=== PATIENT | female | born 1985 | race Caucasian/White ===

== ENCOUNTER 2016-05-21 12:53 | Emergency (ER) | payer OTHER ==
--- NOTE | 2016-05-21 13:23 | ED.PDOC ---
History of Present Illness - General Chief Complaint: General Stated Complaint: mid back pain Time Seen by Provider: 05/21/16 13:08 Source: patient Exam Limitations: no limitations - History of Present Illness Initial Comments: PT C/O BACK PAIN X 2-3 DAYS. MID BACK. SHARP CONSTANT Severity: moderate Improving Factors: nothing Worsening Factors: eating - AFTER PT EATS DEVELOPS EPIGASTRIC PAIN WHICH RADIATES TO MID BACK. MID BACK PAIN HOWEVER PERSISTS Associated Symptoms: nausea/vomiting - TODAY ONLY 15 MINUTES AFTER EATING Allergies/Adverse Reactions: Allergies NO KNOWN ALLERGY Allergy (Verified 05/21/16 13:08) Home Medications: Ambulatory Orders Tramadol HCl [Ultram] 50 mg PO Q6HRS PRN #15 tab 08/20/14 Dicyclomine HCl [Bentyl] 20 mg PO Q6HR PRN #20 tab 05/21/16 Indomethacin 50 mg PO BID PRN #14 cap 05/21/16 Review of Systems - Review of Systems Constitutional: Denies: chills, fever EENTM: Denies: ear pain, throat pain Respiratory: Denies: cough, short of breath, wheezing Cardiology: Denies: chest pain, palpitations Gastrointestinal/Abdominal: States: abdominal pain, nausea, vomiting. Denies: diarrhea Genitourinary: Denies: dysuria, frequency, hematuria Musculoskeletal: States: back pain. Denies: neck pain Skin: States: no symptoms reported Neurological: States: no symptoms reported Endocrine: States: no symptoms reported Hematologic/Lymphatic: States: no symptoms reported Past Medical History (General) - Patient Medical History Hx Seizures: No Hx Stroke: No Hx Dementia: No Hx Asthma: No Hx of COPD: No Hx Cardiac Disorders: No Hx Congestive Heart Failure: No Hx Pacemaker: No Hx Hypertension: No Hx Thyroid Disease: No Hx Diabetes: No Hx Gastroesophageal Reflux: No Hx Renal Disease: No Hx Cancer: No Hx of HIV: No Hx Hepatitis C: No Hx MRSA: No Hx Other - free text: DEPRESSION Surgical History: appendectomy, other - C SECTION - Vaccination History Hx Tetanus, Diphtheria Vaccination: Yes Hx Influenza Vaccination: No Hx Pneumococcal Vaccination: No - Social History Hx Tobacco Use: No Hx Chewing Tobacco Use: No Hx Alcohol Use: No Hx Substance Use: No Hx Substance Use Treatment: No Hx Depression: No Hx Physical Abuse: No Hx Emotional Abuse: No Hx Suspected Abuse: No - Female History Hx Last Menstrual Period: 05/19/14 Patient : No - MISCARRIAGE PER DR. KEITH EARLY THIS MORNING. Expected Date of Delivery:: 03/31/15 Family Medical History - Family History Mother Family History: No Known Living Status: Still Living Hx Family Asthma: Yes Hx Cardiac Disease: Yes Hx Family Cancer: Yes - breast, cervical Physical Exam - Physical Exam General Appearance: Alert, Comfortable, No apparent distress, Obese Eye Exam: bilateral normal Ears, Nose, Throat: normal ENT inspection Neck: non-tender, full range of motion, supple, normal inspection Respiratory: lungs clear, normal breath sounds, other - O2 SATS 100% RA (NL) Cardiovascular/Chest: regular rate, rhythm, no murmur Gastrointestinal/Abdominal: normal bowel sounds, non tender, soft, no organomegaly Back Exam: normal inspection, no CVA tenderness Extremity: normal range of motion, non-tender, normal inspection Neurologic: normal mood/affect Skin Exam: normal color, warm/dry Lymphatic: no adenopathy Progress - Progress Progress: 05/21/16 15:33 STILL HAVING PAIN. PLEURITIC IN NATURE. FEEL IS MUSCULO-SKELETAL. - EKG/XRAY/CT EKG: Sinus - RATE 85, NL AXIS, NL INTERVALS, NON SPECIFIC T WAVE CHANGES, NAIP, NO OLD FOR COMPARISON Xray Comments: HAVE REVIEWED AND AGREE WITH RADIOLOGIST Departure - Departure Clinical Impression: Pleurisy, Musculoskeletal pain, Biliary colic Time of Disposition: 15:34 Disposition: Discharge to Home or Self Care Condition: Good Departure Forms: ED Discharge - Pt. Copy, ED Discharge - Work Release, Patient Portal Self Enrollment Instructions: Gallstones, DI for Musculoskeletal Pain Referrals: Sergey Monge MD [Primary Care Provider] - 1-2 Weeks Prescriptions: Dicyclomine HCl [Bentyl] 20 mg PO Q6HR PRN #20 tab PRN Reason: Abdominal Cramping Indomethacin 50 mg PO BID PRN #14 cap PRN Reason: Pain Home Medications: Ambulatory Orders Tramadol HCl [Ultram] 50 mg PO Q6HRS PRN #15 tab 08/20/14 Dicyclomine HCl [Bentyl] 20 mg PO Q6HR PRN #20 tab 05/21/16 Indomethacin 50 mg PO BID PRN #14 cap 05/21/16
[2016-05-21 13:46] VITALS: TEMP 97.8
--- NOTE | 2016-05-21 14:02 | RAD ---
EXAM DESCRIPTION: Chest,2 Views CLINICAL HISTORY: 31 years Female, BACK PAIN COMPARISON: 01 March 2011 TECHNIQUE: PA/lateral FINDINGS: There is no cardiac or pulmonary abnormality. The lungs are clear. There is no effusion. IMPRESSION: 1. Normal two-view chest. Electronically signed by: Daryn Roland MD 05/21/2016 2:02 PM CDT
[2016-05-21 14:07] VITALS: O2SAT 98
[2016-05-21] MEDS ORDERED: KETOROLAC TROMETHAMINE INJ 60 MG/2 ML VIAL IM ONE (14:35)
[2016-05-21 16:02] VITALS: BP 122/70
== END 2016-05-21 15:46 | disposition home or self-care (01) ==
LOC: ER 12:53
DX: R09.1 Pleurisy (principal); K80.50 Calculus of bile duct without cholangitis or cholecystitis without obstruction; M79.1 Myalgia
CPT/HCPCS: 36415; 71020; 80053; 82150; 83690; 84703; 85025; J1885

== ENCOUNTER 2016-06-10 05:56 | Day surgery (SDC) | payer OTHER ==
[2016-06-10] MEDS ORDERED: ceFAZolin SODIUM 1 GM VIAL ONE (08:23)
[2016-06-10] MEDS ORDERED: LACTATED RINGERS 1,000 ML ONE (08:23)
[2016-06-10] MEDS ORDERED: SODIUM CHL 0.9% 100ML MINI-BAG 100 ML IVPB ONE (08:23)
[2016-06-10] MEDS ORDERED: MORPHINE SULFATE INJ 10 MG/ML VIAL ONE (08:55)
[2016-06-10] MEDS ORDERED: MIDAZOLAM INJ 5 MG/5 ML VIAL ONE (08:55)
[2016-06-10] MEDS ORDERED: BUPIVACAINE 0.25% W/EPI 50 ML VIAL INJ ONE (09:14)
[2016-06-10] MEDS ORDERED: fentaNYL CITRATE INJ 50 MCG/ML AMP ONE (09:27)
--- NOTE | 2016-06-10 11:36 | OP ---
DATE OF PROCEDURE: 06/10/16 PREOPERATIVE DIAGNOSIS: 1. Incarcerated ventral hernia. POSTOPERATIVE DIAGNOSIS: 1. Incarcerated ventral hernia. PROCEDURE: 1. Repair of incarcerated ventral hernia with Surgimesh Onlay graft. SURGEON: Tien Marroquin MD. DIGITAL IMAGING SPECIALIST: None. ANESTHESIA: General endotracheal anesthesia and local infiltration of 0.25% Marcaine with epinephrine. INDICATION: The patient is a 31-year-old female who had a tender mass above her umbilicus. Workup revealed a small hernia neck with a good sized incarcerated hernia containing fat. After the risks, benefits and alternatives to the procedure were discussed and accepted, the patient was brought to the Surgical Suite today for noted procedure. FINDINGS: The defect was approximately 1.5 x 1 cm with the transverse direction largest. The fat within was the size of an extra large egg. PROCEDURE: After the patient was marked in Outpatient, she was brought to the Surgical Suite and placed in the supine position. General endotracheal anesthesia was then obtained, and the patient was prepped and draped in the usual sterile manner. At this point, a surgical time-out was taken. A vertical incision was made in the midline at the area of the tender mass. Local infiltration of anesthesia was obtained. The skin was incised with a knife. Dissection was carried down through the skin and subcutaneous tissue using blunt dissection and electrocautery. The mass was identified and dissected free circumferentially and then dissected from the abdominal wall until just the fat coming from the hernia was noted. The remaining fat was dissected free from the fascia around the defect. After dissecting the neck, it was cleared. We were unable to reduce it, so using multiple bites the fat within the defect was transected with Vicryl 3-0 ties. It was sent for pathologic evaluation along with the hernia sac. The remnant was reduced below the floor of the canal and the defect was closed with two [id number] sutures of #1 PDS. When these were tightened and tied, the wound was irrigated with saline. Hemostasis was noted to be adequate. A 7 x 5 cm oval shaped Surgimesh implant was then sutured in a vertical direction in place with 2-0 Prolene and Vicryl sutures. When this was done, again, it was irrigated with saline and the subcutaneous tissue was closed in layers of 2-0 and 3-0 Vicryl. The skin edges were approximated with a skin stapler. Sterile pressure dressing was applied. The patient was awakened and taken to the Recovery Room in good and stable condition. Estimated blood loss was less than 50 mL. All sponge, needle and instrument counts were correct. #[id number] [facility]
[2016-06-10] MEDS ORDERED: ONDANSETRON INJ 4 MG/2 ML VIAL ONE (11:38)
[2016-06-10] MEDS ORDERED: PROMETHAZINE HCL INJ 25 MG/ML VIAL ONE (11:54)
[2016-06-10] MEDS ORDERED: SODIUM CHL 0.9% 50ML MIN-BAG+ 50 ML IVPB ONE (11:54)
[2016-06-10] MEDS ORDERED: SODIUM CHLORIDE 0.9% 500ML 500 ML ONE (11:55)
[2016-06-10] MEDS ORDERED: ROCURONIUM BROMIDE 10 MG/ML VIAL IV ONE (12:00)
[2016-06-10] MEDS ORDERED: METOCLOPRAMIDE HCL INJ 10 MG/2 ML VIAL IV ONE (12:00)
[2016-06-10] MEDS ORDERED: LIDOCAINE 1% 10 ML VIAL INJ ONE (12:00)
[2016-06-10] MEDS ORDERED: PROPOFOL 200 MG/20 ML VIAL IV ONE (12:00)
[2016-06-10] MEDS ORDERED: GLYCOPYRROLATE 0.2 MG/ML VIAL IV ONE (12:00)
[2016-06-10] MEDS ORDERED: DEXAMETHASONE INJ 10 MG/ML VIAL IV ONE (12:00)
[2016-06-10] MEDS ORDERED: raNITIdine HCL INJ 25 MG/ML VIAL IV ONE (12:00)
[2016-06-10] MEDS ORDERED: diphenhydrAMINE HCL 50 MG/ML VIAL IV ONE (12:00)
[2016-06-10] MEDS ORDERED: SODIUM CHLORIDE 0.9% 50 ML VIAL INJ ONE (12:00)
[2016-06-10] MEDS ORDERED: HYDROcodone 5MG/APAP 325MG 1 EA TAB ONE (12:40)
[2016-06-10] MEDS ORDERED: HYDROcodone 5MG/APAP 325MG 1 EA TAB PO ONE (13:10)
[2016-06-10 13:27] VITALS: BP 109/75; TEMP 97.8; O2SAT 98
== END 2016-06-10 13:25 | disposition home or self-care (01) ==
LOC: AMB 05:56
PROVIDERS: ATTEND Surgery
DX: K43.6 Other and unspecified ventral hernia with obstruction, without gangrene (principal); Z79.899 Other long term (current) drug therapy; E66.9 Obesity, unspecified; Z68.34 Body mass index [BMI] 34.0-34.9, adult
CPT/HCPCS: 00832; 36415; 49561; 49568; 81001; 81025; 85025; A4216; C1781; J0690; J1100; J1200; J2250; J2270; J2405; J2550; J2765; J2780; J3010; J3490; J7040; J7050; J7120

== ENCOUNTER → 2016-10-30 | Outpatient (CLI) | payer OTHER ==
--- NOTE | 2016-10-30 17:16 | US ---
EXAM DESCRIPTION: Breast,Bilateral CLINICAL HISTORY: 31 yearsFemaleBREAST LUMP, FAMILY HX OF BREAST CA COMPARISON: Digital 3-D tomosynthesis bilateral breasts the same visit. TECHNIQUE: Transcutaneous scanning of the bilateral breast utilizing two-dimensional and Doppler modes. Scanning performed by the supervisor contact lens and Dr. Smith. FINDINGS: At the 600 clock position of the right breast, 6 cm from the nipple is a hypoechoic mass with well circumscribed margins measuring 7.4 mm. Central echogenicity. Nonvascular. Parallel orientation with enhancing posterior features. Most likely a lymph node. No discrete cyst or calcifications. Scanning also at the 1030 clock position of the right breast 4 cm from the nipple. No discrete solid mass or cyst. No calcifications or parenchymal edema. Hypoechoic oval-shaped mass with well circumscribed margins at the 800 clock position of the left breast 5 cm from the nipple. Central echogenicity measuring approximately 1 cm. Parallel orientation with enhancing posterior features. Nonvascular. No discrete cyst or calcifications. No parenchymal edema. IMPRESSION: BI-RADS CATEGORY: 2 - BENIGN FINDINGS. Please refer to bilateral 3-D breast tomosynthesis examination and report on this visit. The findings and the follow-up plan were reviewed in person with the patient after the examination. Written communication explaining the findings and follow-up, will be mailed to the patient and referring health care provider. Electronically signed by: Patrick Smith MD 10/30/2016 5:15 PM CDT
--- NOTE | 2016-11-01 10:55 | MAM ---
EXAM DESCRIPTION: 3D Diagnostic, Bilateral CLINICAL HISTORY: 31 yearsFemaleBREAST LUMP . Bilateral palpable breast masses. Mother with ovarian cancer. Paternal grandmother with breast cancer. Premenopausal. COMPARISON: Bilateral targeted breast ultrasound after this examination. No prior reports available. TECHNIQUE: Bilateral CC and MLO projection full-field images, 3-D tomosynthesis digital mammographic technique. Also bilateral synthesized CC/ MLO full-field images. CAD not utilized. FINDINGS: The breast parenchymal density pattern is: Scattered areas of fibroglandular density. No skin thickening or nipple retraction in marker on the middle third of the lower inner quadrant of the left breast. No corresponding abnormality on the images. Skin marker on the 600 clock position of the middle third of the right breast. No corresponding mammographic abnormality. 5 mm mass with same density as adjacent fibroglandular tissues and well-circumscribed margins. No calcifications. Anterior and slightly lateral to the marker. No focal, stellate mass or density, focal asymmetry , and no suspicious microcalcifications left breast. No focal asymmetry or suspicious microcalcifications right breast. Ultrasound: At the 600 clock position of the right breast, 6 cm from the nipple is a hypoechoic mass with well circumscribed margins measuring 7.4 mm. Central echogenicity. Nonvascular. Parallel orientation with enhancing posterior features. Most likely a lymph node. No discrete cyst or calcifications. Scanning also at the 1030 clock position of the right breast 4 cm from the nipple. No discrete solid mass or cyst. No calcifications or parenchymal edema. Hypoechoic oval-shaped mass with well circumscribed margins at the 800 clock position of the left breast 5 cm from the nipple. Central echogenicity measuring approximately 1 cm. Parallel orientation with enhancing posterior features. Nonvascular. No discrete cyst or calcifications. No parenchymal edema. IMPRESSION: BI-RADS CATEGORY: 2 - BENIGN FINDINGS. FOLLOW UP: Routine digital bilateral screening, beginning at age 40. The Findings and Follow-Up plan were reviewed with the patient in person following the ultrasound examination. Written communication explaining the Findings and Follow-Up, will be mailed to the patient and referring health care provider. According to the [employer], yearly mammograms are recommended starting at age 40 and continuing as long as a woman is in good health. Any breast change noted on a breast self-exam should be reported promptly to the patient's healthcare provider. Breast MRI is recommended for women with an approximately 20-25% or greater lifetime risk of breast cancer, including women with a strong family history of breast or ovarian cancer and women who have been treated for Hodgkin's disease. A negative mammographic report should not delay tissue diagnosis in patients with significant clinical history or physical findings. Extremely dense breast tissue limits the sensitivity of digital mammography. Electronically signed by: Patrick Smith MD 11/01/2016 10:54 AM CDT
== END | disposition home or self-care (01) ==
LOC: US 13:18
PROVIDERS: ATTEND Obstetrics & Gynecology
DX: N63 Unspecified lump in breast (principal); Z80.3 Family history of malignant neoplasm of breast

== ENCOUNTER → 2019-02-05 | Outpatient (CLI) | payer OTHER | LOC: LAB.O 11:47 | PROVIDERS: ATTEND Nurse Practitioner | DX: L73.9 Follicular disorder, unspecified (principal) ==

== ENCOUNTER → 2019-06-07 | Outpatient (CLI) | payer OTHER ==
--- NOTE | 2019-06-08 08:48 | US ---
EXAM DESCRIPTION: Soft Tissue,Abdomen: ULTRASOUND. CLINICAL HISTORY: ABD PN COMPARISON: Endovaginal pelvic ultrasound on the same visit. TECHNIQUE: Transabdominal scanning: nam-scale mode. Doppler mode. FINDINGS: Slightly hypoechoic mass with partially circumscribed margins in the adipose tissue to the right of the umbilicus measuring 6.9 x 6.8 x 5.2 cm. Same region as palpable mass and pain. Internal architecture is similar to the surrounding adipose tissue. Nonvascular. No distinct cyst in the large calcifications. No peristalsis of bowel. IMPRESSION: Probable lipoma in the region of interest on the right side of the umbilicus. If pain continues or palpable mass enlarges, consider CT scan or MRI scan of the lesion with contrast. Electronically signed by: Patrick Smith MD 06/08/2019 8:47 AM CDT
--- NOTE | 2019-06-08 08:58 | US ---
EXAM DESCRIPTION: Pelvis Transvaginal: Ultrasound. CLINICAL HISTORY: 34 years Female ABD PN. LMP 05/09/2019. 6, para 4. No current HRT or control. No prior gynecologic surgery. COMPARISON: Ultrasound of the abdominal wall in the region of the umbilicus on this visit. TECHNIQUE: Endovaginal scanning; Carr-scale and Doppler modes. FINDINGS: Uterus 8.9 x 5.3 x 4.2 cm. Endometrial thickness 5.6 mm. Myometrium heterogeneous. Minimally Echogenic mass in the anterior left aspect of the fundus measuring 2.4 x 2.0 x 1.3 cm.. Uterus not retroflexed. Cervix cyst measuring 9.1 mm, 1.0 cm, and 7.5 mm.. Cul-de-sac no fluid. Right ovary 2.0 x 1.9 x 1.7 cm. Normal waveform and color Doppler vascularity. 8 x 8 x 7 mm simple follicle. Second simple follicle measures 10 mm. No cysts. No adnexal mass or free fluid. Left ovary 2.9 x 2.6 x 2.2 cm 8.8 mL. Normal waveform and color Doppler vascularity. Simple appearing follicle measuring 1.5 x 1.5 x 1.3 cm with no vascularity, septations, or nodules. Second similar-appearing follicle measures 1.3 x 1.1 cm. No cysts. No adnexal mass or free fluid. IMPRESSION: 1. Normal orientation and size of the uterus with no endometrial thickening. 2.4 cm echogenic fibroid. Superior left fundus. Multiple cervical nabothian cysts. No fluid in the cul-de-sac. 2. Bilateral simple ovarian follicles larger on the left, measuring 1.5 cm. No adnexal mass or fluid. Normal vascularity of both ovaries. No follow-up imaging is recommended. Reference: Radiology 2009;256(3):943-54 Electronically signed by: Patrick Smith MD 06/08/2019 8:56 AM CDT
== END ==
LOC: US 11:02
PROVIDERS: ATTEND Nurse Practitioner Family
DX: D25.9 Leiomyoma of uterus, unspecified (principal); N88.8 Other specified noninflammatory disorders of cervix uteri; R22.2 Localized swelling, mass and lump, trunk

== ENCOUNTER → 2019-06-14 | Outpatient (CLI) | payer OTHER ==
--- NOTE | 2019-06-14 09:41 | CT ---
EXAM DESCRIPTION: Abdoment/Pelvis w/o Contrast CLINICAL HISTORY: 34 years, Female, VENTRAL INCISIONAL HERNIA COMPARISON: Ultrasound pelvis June 07, 2019, CT abdomen and pelvis May 27, 2016 TECHNIQUE: CT of the abdomen and pelvis is performed according to our non contrast protocol. FINDINGS: The lung bases are clear. Liver, spleen, and pancreas are unremarkable. Adrenal glands appear normal. The right kidney is unremarkable. The left kidney is unremarkable. No renal stones or hydronephrosis. Small bowel loops appear normal in caliber with normal wall thickness. There is no lymphadenopathy, inflammation, or free fluid observed. Previous study showed a ventral hernia containing omental fat. This is no longer identified and appears to have been surgically repaired. In the pelvis, the appendix is surgically absent. No inflammation around the cecum or terminal ileum or sigmoid colon. No stones in the distal ureters or bladder. Rectal wall thickness is normal for degree of distention. No free fluid or mass in the pelvis. Uterus appears normal. No ovarian enlargement. No inguinal or lower pelvic adenopathy. Coronal and sagittal reformatted images confirm the findings. IMPRESSION: No acute process in the abdomen or pelvis. This exam was performed according to our departmental dose-optimization program, which includes automated exposure control, adjustment of the mA and/or kV according to patient size and/or use of iterative reconstruction technique. Total DLP equals 1526.35 mGycm. Electronically signed by: Calvin Henderson MD 06/14/2019 9:40 AM CDT
== END ==
LOC: CT 08:38
PROVIDERS: ATTEND Surgery
DX: Z87.19 Personal history of other diseases of the digestive system (principal); Z98.890 Other specified postprocedural states